=== PATIENT | male | born 1995 | race Caucasian/White ===

== ENCOUNTER 2016-04-07 19:36 | Emergency (ER) | payer BC ==
[~2016-04-07] VITALS: Ht 180.3 cm; Wt 74.4 kg
[2016-04-07] MEDS ORDERED: MOTRIN800 MG PO (23:33)
[2016-04-07] MEDS ORDERED: KEFLEX500 MG PO (23:33)
[2016-04-07 23:57] VITALS: BP 142/84
== END 2016-04-08 00:01 | disposition home or self-care (01) ==
LOC: EXP 19:36 → EME 19:36 → EXP 04-08 00:01
PROC: 3E0234Z Introduction of Serum, Toxoid and Vaccine into Muscle, Percutaneous Approach (ICD-10-PCS; principal; 2016-04-07)
DX: S61.411A Laceration without foreign body of right hand, initial encounter (principal); W24.0XXA Contact with lifting devices, not elsewhere classified, initial encounter; F17.200 Nicotine dependence, unspecified, uncomplicated
CPT/HCPCS: 73130; 99281; 99285